=== PATIENT | male | born 1970 | race Caucasian/White ===

== ENCOUNTER 2025-01-08 22:44 | Emergency (ER) | payer MEDICAID ==
[~2025-01-08] VITALS: Ht 180.3 cm; Wt 121.0 kg
[~2025-01-08 22:44] MED LIST: DIAZ-546 PO; DIAZ5TAB22 PO; HYDR-4383 PO; MECL12.5 PO; ONDA8TAB9 PO
[2025-01-08 23:42] LABS: MEAN PLATELET VOLUME 9.3 FL (7.4-10.4); RED CELL DISTRIBUTION WIDTH 14.8 % (11.5-14.5)
[2025-01-08 23:50] LABS: CREATININE 1.06 MG/DL (0.60-1.10); TOTAL CARBON DIOXIDE 30.1 MMOL/L (24-32); eCRCL 86 ML/MIN; eGFR 73 ML/MIN
--- NOTE | 2025-01-09 00:18 | RADIOLOGY REPORT ---
Date: 01/08/2025 11:16 PM Examination: DI ABDOMEN,SINGLE VIEW(KUB) History: Flank pain Comparison: None TECHNIQUE: Frontal views of the abdomen was obtained. FINDINGS/IMPRESSION: Nonspecific bowel gas pattern. No free air. Age-indeterminate fractures about the left posterior 8th and 9th ribs.
[2025-01-09 02:06] LABS: LEUKOCYTE ESTERASE ,URINE NEGATIVE (Neg); NITRITES, URINE POSITIVE (Neg); OCCULT BLOOD,URINE NEGATIVE (Neg)
[2025-01-09 02:12] LABS: UA COLLECTION TYPE NON-SPECIFIED
[2025-01-09 02:31] LABS: SQUAMOUS EPITHELIAL CELL,UR NONE SEEN /LPF (FEW)
[2025-01-09 02:38] LABS: URINE AMPHETAMINE SCREEN NEGATIVE (Neg); URINE BARBITUATE SCREEN NEGATIVE (Neg); URINE BENZODIAZEPINES SCREEN NEGATIVE (Neg); URINE CANNABINOID SCREEN NEGATIVE (Neg); URINE COCAINE SCREEN NEGATIVE (Neg); URINE METHADONE SCREEN NEGATIVE (Neg); URINE OPIATE SCREEN POSITIVE (Neg); URINE PHENCYCLIDINE SCREEN NEGATIVE (Neg)
--- NOTE | 2025-01-09 02:45 | Physician Documentation ---
History of Present Illness ~ Chief Complaint: Flank Pain Stated Complaint: LOWER BACK PAIN/KIDNEY DISCOMFORT Time Seen by MD: 02:09 Primary Medical Doctor: TANIKA Mode of Arrival: POV HPI Patient presents to the emergency room with chief complaint of left-sided back pain onset 2-3 days ago. He did go to a store at that time and spoke to a pharmacy about some dysuria he was experiencing was referred to take azo. No fevers. Occasional ibuprofen and Tylenol with limited benefit. He does have history of kidney stones but states this does not feel like a kidney stone. Medication Reconciliation Allergies: Coded Allergies: Penicillins (Verified Adverse Reaction, Mild, RASH, 01/08/25) Scheduled Atorvastatin Calcium* (Lipitor*), 1 TAB PO DAILY, (Reported) Empagliflozin (Jardiance), 1 TAB PO DAILY, (Reported) Lisinopril* (Lisinopril*), 1 TAB PO DAILY, (Reported) Discontinued Medications Diazepam (Valium), 1 TABLET PO BID PRN for dizziness/vertigo Discontinued Reason: patient no longer taking Diazepam* (Valium*), 5-10 MG PO TID Discontinued Reason: patient no longer taking Hydrocodone/Acetaminophen ([place] 5-325 Tablet), 1-2 TABLET PO Q4H Discontinued Reason: patient no longer taking Meclizine Hcl* (Antivert*), 25 MG PO Q6H Discontinued Reason: patient no longer taking Ondansetron (Zofran Odt), 4 MG PO QID Discontinued Reason: patient no longer taking Past Medical History Past Medical History: Hypertension, Chronic Back Pain Past Surgical History: no surgical history Alcohol Use: Heavy Lives In: Home Occupation: employed Review of Systems ROS All review of systems negative except as per HPI Physical Exam Vital Signs: Temperature: 97.8, Source: Temporal, Heart Rate: 83, Respiratory Rate: 18, BP: 122/77, Pulse Oximetry: 92, Weight: 121.000 Physical Exam General: Patient is awake, alert, oriented x4 in no acute distress and well appearing.~ Head: Normocephalic and atraumatic. Eyes: Conjunctival normal. EOMI. PERRL. ENT: Mucous membranes moist. Neck: Supple, trachea is midline. Chest: Clear to auscultation bilaterally without rales, rhonchi, or wheezes. There is no accessory muscle use or retractions. Cardiac: RRR without murmurs, gallops, or rubs. Back: Left-sided CVA tenderness. Progress Results/Orders Results/Orders Completed Orders - MOHSEN REYNOLDS MD Drug Screen, Urine (01/09/25 02:09) Ceftriaxone Im Kit W/Lidocaine (Rocephin (01/09/25 02:45) Tramadol Tablet (Ultram Tablet) (01/09/25 02:45) Ondansetron Disint. Tablet (Zofran Odt T (01/09/25 02:45) Ketorolac Trometh 15mg/Ml Vial (Toradol (01/09/25 02:45) Acetaminophen 325mg Tablet (Tylenol Tabl (01/09/25 02:45) Medications Received in ER Medications (Trade) Dose Ordered Sig/Hari Route PRN Reason Start Time Stop Time Status Last Admin Dose Admin (Rocephin 1GM IM kit (w/lidocaine diluent)) 1,000 mg ONCE ONCE IM 01/09/25 02:45 01/09/25 02:47 DC 01/09/25 03:07 1,000 MG (Ultram tablet) 100 mg ONCE ONCE PO 01/09/25 02:45 01/09/25 02:47 DC 01/09/25 02:55 100 MG (Zofran ODT tablet) 4 mg ONCE ONCE PO 01/09/25 02:45 01/09/25 02:47 DC 01/09/25 02:57 4 MG (Toradol injection) 30 mg ONCE ONCE IM 01/09/25 02:45 01/09/25 02:47 DC 01/09/25 03:01 30 MG (Tylenol tablet) 650 mg ONCE ONCE PO 01/09/25 02:45 01/09/25 02:47 DC 01/09/25 02:56 650 MG Vital Signs 01/08/25 01/09/25 01/09/25 01/09/25 22:46 00:57 01:00 02:43 Temp 97.8 Pulse 62 83 87 Resp 16 19 18 20 B/P (MAP) 111/70 122/77 (92) 126/77 (93) Pulse Ox 94 92 95 Laboratory Tests Test 01/08/25 23:33 01/09/25 01:10 White Blood Count 7.6 Red Blood Count 5.50 Hemoglobin 18.1 *H Hematocrit 53.3 H Mean Corpuscular Volume 96.8 Mean Corpuscular Hemoglobin 33.0 H Mean Corpuscular Hemoglobin Concent 34.1 Red Cell Distribution Width 14.8 H Platelet Count 176 Mean Platelet Volume 9.3 Neutrophils (%) (Auto) 71.0 Lymphocytes (%) (Auto) 16.3 L Monocytes (%) (Auto) 10.2 Eosinophils (%) (Auto) 2.2 Basophils (%) (Auto) 0.3 Neutrophils # (Auto) 5.4 Lymphocytes # (Auto) 1.2 Monocytes # (Auto) 0.8 Eosinophils # (Auto) 0.2 Basophils # (Auto) 0.0 CBC Comment Sodium Level 139 Potassium Level 4.1 Chloride Level 103 Carbon Dioxide Level 30.1 Anion Gap 6 L Blood Urea Nitrogen 18 Creatinine 1.06 Estimated GFR/1.73 m2 73 BUN/Creatinine Ratio 17.0 Glucose Level 159 H Calcium Level 9.1 Albumin 4.0 Chemistry Comments Urine Specimen Description Non-specified Urine Color Yellow Urine Clarity Clear Urine pH 6.0 Urine Specific [place] 1.015 Urine Protein Trace Urine Glucose (UA) >=1000 H Urine Ketones Trace H Urine Occult Blood Negative Urine Nitrite Positive H Urine Bilirubin Negative Urine Urobilinogen 2.0 H Urine Leukocyte Esterase Negative Urine RBC None seen Urine WBC 0-4 Urine Squamous Epithelial Cells None seen Urine Bacteria 1+ Volume Urine Centrifuged 10 ml Urine Comment Urine Opiates Screen Positive Urine Methadone Screen Negative Urine Fentanyl Screen Negative Urine Barbiturates Screen Negative Urine Phencyclidine Screen Negative Urine Amphetamines Screen Negative Urine Benzodiazepines Screen Negative Urine Cocaine Screen Negative Urine Cannabinoids Screen Negative Drug Screen Comment Medical Decision Making Additional information obtaine: N/A Findings Patient presents to the emergency room with left-sided flank pain. Differentials include but are not limited to aortic pathology, musculoskeletal pain, pyelonephritis, kidney stone therefore emergent labs ordered. Patient does have a urinary tract infection. No red blood cells in urine he had no evidence of acute kidney injury and given the patient states this feels nothing like a stone I do not feel he is suffering from a kidney stone but p yelonephritis. I do not feel he requires a CT scan. Antibiotics initiated ER precautions discussed. Diff Dx GI Bleed:Consideration: Include: Blood loss anemia Diff Dx Pain:Considerations: Include: Cholangitis Diff Dx N/V/D:Considerations: Include: Diarrhea - parasitic Diff Dx Rectal:Considerations: Include: Foreign body Departure Disposition: HOME / SELF CARE / HOMELESS Impression: Primary Impression: Acute pyelonephritis Condition: Fair Discharge Instructions: Pyelonephritis, Adult Referrals: NO PRIMARY CARE PROVIDER (PCP) Prescriptions Ciprofloxacin HCl (Ciprofloxacin HCl) 500 Mg Tab 1 TAB PO Q12H for 10 Days, #20 TAB Prov: MOHSEN REYNOLDS MD 01/09/25 Ondansetron 8mg ODT (Ondansetron Odt) 8 Mg Tab.rapdis 1 TAB PO Q6H for nausea/vomiting for 3 Days, #12 TAB 0 Refills Prov: MOHSEN REYNOLDS MD 01/09/25 Tramadol HCl (Tramadol HCl) 50 Mg Tablet 1-2 TAB PO Q6H PRN PRN for pain for 7 Days, #28 TAB Prov: MOHSEN REYNOLDS MD 01/09/25 Education Educated: Patient Educated regarding: diagnosis, treatment, need for follow up Signature Scribe Signature: No scribe Attestation: The note accurately reflects work and decisions made by me.Mohsen Reynolds MD 01/09/25 03:39 MOHSEN REYNOLDS MD Jan 09, 2025 02:45
[2025-01-09] MEDS ORDERED: ATOR20TA PO (02:47)
[2025-01-09] MEDS ORDERED: LISI40TA20 PO (02:47)
[2025-01-09] MEDS ORDERED: EMPA25TA PO (02:48)
[2025-01-09] MEDS: ondansetron 4mg rapidly disintigrating tab PO ONE (02:57)
[2025-01-09] MEDS: ketorolac trometh 15mg/ml vial 15 MG/ML ML IM ONE (03:01)
[2025-01-09] MEDS: CefTRIAXone 1000mg IM Kit (w/lidocaine diluent) IM ONE (03:07)
[2025-01-09] MEDS ORDERED: TRAM50TA2 PO (03:38)
[2025-01-09] MEDS ORDERED: CIPR-458 PO (03:38)
[2025-01-09] MEDS ORDERED: ONDA-245 PO (03:38)
[2025-01-09 03:59] VITALS: BP 134/78; PULSE 87; RESP 19; TEMP 97.8; O2SAT 100
== END 2025-01-09 04:00 | disposition home or self-care (01) ==
LOC: ER 22:45
DX: N10 Acute pyelonephritis (principal); I10 Essential (primary) hypertension; G89.29 Other chronic pain; F10.90 Alcohol use, unspecified, uncomplicated; Z88.0 Allergy status to penicillin; Z87.442 Personal history of urinary calculi; Z79.899 Other long term (current) drug therapy; Y90.9 Presence of alcohol in blood, level not specified
CPT/HCPCS: 36415; 74018; 80048; 80305; 81001; 85025; 96372; 99284; J0696; J1885

== ENCOUNTER 2025-01-11 13:38 | Emergency (ER) | payer MEDICARE, MEDICAID ==
[~2025-01-11] VITALS: Ht 180.3 cm; Wt 122.9 kg
[~2025-01-11 13:38] MED LIST changes: +ATOR20TA PO; +CIPR-458 PO; -DIAZ-546 PO; -DIAZ5TAB22 PO; +EMPA25TA PO; -HYDR-4383 PO; +LISI40TA20 PO; -MECL12.5 PO; +ONDA-245 PO; -ONDA8TAB9 PO; +TRAM50TA2 PO
[2025-01-11 13:40] VITALS: TEMP 98.6
--- NOTE | 2025-01-11 15:00 | Physician Documentation ---
History of Present Illness ~ Chief Complaint: Rash Stated Complaint: RASH Time Seen by MD: 14:16 Primary Medical Doctor: [facility] Patient is a pleasant 54-year-old male that presents to the emergency department for evaluation of a rash along his left flank extending onto his left abdomen. Patient reports that he was started on a antibiotic a couple of days ago for urinary tract infection. Patient was concerned that the antibiotic had caused a rash. Rash at this time appears to be vesicular and consistent with shingles. Patient denies any fever chills nausea vomiting diarrhea does report that the rash is very painful at this time. Medication Reconciliation Allergies: Coded Allergies: Penicillins (Verified Adverse Reaction, Mild, RASH, 01/11/25) Scheduled Atorvastatin Calcium* (Lipitor*), 1 TAB PO DAILY, (Reported) Ciprofloxacin HCl (Ciprofloxacin HCl), 1 TAB PO Q12H Empagliflozin (Jardiance), 1 TAB PO DAILY, (Reported) Lisinopril* (Lisinopril*), 1 TAB PO DAILY, (Reported) Ondansetron 8mg ODT (Ondansetron Odt), 1 TAB PO Q6H Scheduled PRN Tramadol HCl (Tramadol HCl), 1-2 TAB PO Q6H PRN PRN for pain Discontinued Medications Diazepam (Valium), 1 TABLET PO BID PRN for dizziness/vertigo Discontinued Reason: patient no longer taking Diazepam* (Valium*), 5-10 MG PO TID Discontinued Reason: patient no longer taking Hydrocodone/Acetaminophen ([place] 5-325 Tablet), 1-2 TABLET PO Q4H Discontinued Reason: patient no longer taking Meclizine Hcl* (Antivert*), 25 MG PO Q6H Discontinued Reason: patient no longer taking Ondansetron (Zofran Odt), 4 MG PO QID Discontinued Reason: patient no longer taking Past Medical History Past Medical History: Hypertension, Chronic Back Pain Past Surgical History: no surgical history Alcohol Use: Heavy Lives In: Home Occupation: employed Review of Systems ROS As stated above in the HPI, otherwise all systems are reviewed and negative. Physical Exam Vital Signs: Temperature: 98.6, Source: Oral, Heart Rate: 85, Respiratory Rate: 16, BP: 118/84, Pulse Oximetry: 94, Weight: 122.900 Oxygen Flow Rate: 0 Physical Exam VITALS: Reviewed and as above. GENERAL: Alert, no apparent distress. HEENT: Normocephalic, atraumatic, PERRL, EOMI, dry mucosa, no erythema RESPIRATORY: Lungs clear, normal breath sounds, no respiratory distress. CHEST: No accessory muscle use, no retractions CV: Regular rate, rhythm, no edema, no murmur, No: JVD GI: Soft, non-tender, bowels sounds present, no rebound, guarding, or rigidity BACK: No CVA tenderness, or swelling MUSCULOSKELETAL No deformities, no edema SKIN: Warm and dry, linear vesicular rash along the left flank extending from the back wrapping around to the left middle abdomen during examination. NEURO: Oriented x4, No motor or sensory deficit PSYCH: Normal mood and affect, no agitation Progress Results/Orders Results/Orders Vital Signs 01/11/25 13:40 Temp 98.6 Pulse 85 Resp 16 B/P (MAP) 118/84 Pulse Ox 94 O2 Flow Rate 0 Medical Decision Making Additional information obtaine: other Findings 54-year-old male presents to the ED with a linear vesicular rash along the left side, consistent with herpes zoster (shingles). Rash is unilateral, dermatomal, and associated with moderate pain. No evidence of ophthalmic involvement, immunosuppression, or other complications. Vitals stable; no systemic symptoms. Assessment: Diagnosis of herpes zoster is clinical, based on classic presentation of unilateral, dermatomal vesicular eruption and pain. Patient is at increased risk for complications due to age (>50 years). Plan: Antiviral therapy: Initiate oral acyclovir, as early antiviral treatment (ideally within 72 hours of rash onset) reduces duration and severity of symptoms, viral shedding, and risk of postherpetic neuralgia (PHN). Pain management: Start gabapentin for neuropathic pain control, as adjunctive therapy is recommended for acute pain and to reduce risk of PHN. Discharge instructions: Follow up with primary care provider. Return to ED for worsening symptoms, new neurological deficits, or signs of complications (e.g., vision changes, disseminated rash, severe headache, confusion). Avoid contact with individuals who have not had chickenpox or varicella vaccine until lesions are fully crusted. 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 Discuss vaccine: zoster vaccine reduces risk of recurrence and PHN; defer vaccination for ~3 years, as current episode boosts immunity. Education: Shingles is caused by reactivation of varicella zoster virus, presenting as a painful, blistering rash in a single nerve distribution. Most cases resolve within 24 weeks; pain may persist longer (PHN). Early antiviral and pain management improve outcomes. Complications (e.g., PHN, ocular involvement, [employer] disease) are more common in older adults. Preventive vaccination is recommended for adults ?5060 years, but defer for 3 years post-episode. Patient is stable for discharge. Risks, benefits, and expected course discussed in detail. Differential Dx:Considerations: Include: Abscess, AIDS/HIV, Anthrax (cutaneous), Atopic dermatitis, Candidiasis, Contact dermatitis, Drug reaction, Erythema multiforme, Erysipelas, Gangrene, Herpes zoster, Herpes simplex, Hidradenitis suppurativa, Impetigo, Intertrigo, Lymes disease, Molluscum contagiosum, Osteomyelitis, Pediculosis, Pityriasis rosea, Psoriaisis, RMSF, Rosacea, Scabies, Scarlet fever, Tinea, Urticaria, Varicella, Viral exanthema, Other Departure Disposition: 01 HOME / SELF CARE / HOMELESS Impression: Primary Impression: Shingles Condition: Stable Discharge Instructions: Shingles, [id number] Additional Instructions: You have been diagnosed with shingles (herpes zoster), which is a painful rash caused by the reactivation of the chickenpox virus. The rash usually appears on one side of the body and follows a line along a nerve. The rash will typically blister, then crust over in 710 days, and usually heals within 24 weeks. Some pain may last longer, and in some cases, can persist for months (called postherpetic neuralgia). Medications: Take acyclovir exactly as prescribed to help the rash heal faster and reduce pain. Take gabapentin as directed to help control nerve pain. You may use acetaminophen or ibuprofen for additional pain relief if needed, unless otherwise instructed. Skin Care: Keep the rash clean and dry. If possible, keep the rash covered with a loose, non-stick bandage. Do not use topical antibiotics or creams unless directed by your doctor. Wash your hands after touching the rash. Preventing Spread: Shingles can spread the chickenpox virus to people who have never had chickenpox or the vaccine. Avoid contact with women, newborns, and anyone with a weakened immune system until your rash has fully crusted over. Do not share towels, bedding, or clothing. When to Seek Medical Attention: If you develop new or worsening symptoms, such as: Rash spreading to your face or eyes Vision changes Severe headache, confusion, or weakness High fever or pus from the rash Difficulty breathing If pain becomes severe or is not controlled with your medications. Follow-Up: Schedule a follow-up visit with your primary care provider. If you have any questions or concerns, or if symptoms worsen, return to the emergency department. Additional Information: Most people recover fully, but some may have lingering pain. A shingles vaccine is available to help prevent future episodes; discuss this with your doctor at your follow-up visit. If you have any questions about your medications or care, please contact your healthcare provider. Please return to the emergency department if any worsening or recurrent symptoms or any additional concerning symptoms that we discussed here today. Referrals: NO PRIMARY CARE PROVIDER (PCP) Prescriptions Gabapentin (Gabapentin) 400 Mg Capsule 1 CAP PO Q8H for 30 Days, #90 CAP 0 Refills Prov: JULIET LANDAVERDE 01/11/25 Acyclovir (ACYCLOVIR) 800 Mg Tablet 1 TAB PO 5XD for 7 Days, #35 TAB Prov: JULIET LANDAVERDE 01/11/25 Education Educated: Patient Educated regarding: diagnosis, treatment, need for follow up Signature Scribe Signature: A Attestation: Scribed for Juliet Landaverde by JJ Ceja . 01/11/25 15:09 JULIET LANDAVERDE Jan 11, 2025 15:00
[2025-01-11] MEDS ORDERED: GABA-535 PO (15:09)
[2025-01-11] MEDS ORDERED: ACYC-128 PO (15:09)
[2025-01-11 15:24] VITALS: BP 157/89; PULSE 87; RESP 15; O2SAT 99
== END 2025-01-11 15:28 | disposition home or self-care (01) ==
LOC: ER 13:38
DX: B02.9 Zoster without complications (principal); I10 Essential (primary) hypertension; Z88.0 Allergy status to penicillin; F10.90 Alcohol use, unspecified, uncomplicated; Y90.9 Presence of alcohol in blood, level not specified
CPT/HCPCS: 99283